=== PATIENT | female | born 1975 | race Hispanic/Latino ===

== ENCOUNTER 2018-07-31 13:08 | Emergency (ER) | payer MEDICAID | END 2018-07-31 13:48 | disposition home or self-care (01) | LOC: EDH 13:08 | DX: M62.830 Muscle spasm of back (principal); M54.9 Dorsalgia, unspecified; E07.9 Disorder of thyroid, unspecified; I10 Essential (primary) hypertension; Z88.2 Allergy status to sulfonamides; Z88.1 Allergy status to other antibiotic agents ==